=== PATIENT | male | born 1980 | race Caucasian/White ===

== ENCOUNTER 2023-09-01 17:45 | Emergency (ER) | payer MEDICAID ==
[~2023-09-01] VITALS: Ht 177.8 cm; Wt 95.0 kg
[2023-09-01 21:28] VITALS: BP 124/76; PULSE 62; RESP 18; TEMP 98.8; O2SAT 99
== END 2023-09-01 21:32 | disposition home or self-care (01) ==
LOC: ER 17:46
DX: Z20.822 Contact with and (suspected) exposure to COVID-19 (principal)
CPT/HCPCS: 36415; 87811; 99283